=== PATIENT | female | born 1985 | race Caucasian/White ===

== ENCOUNTER 2022-04-13 16:06 | Emergency (ER) | payer OTHER ==
[~2022-04-13] VITALS: Ht 175.3 cm; Wt 108.9 kg
[~2022-04-13 16:06] MED LIST: ALTACE5 MG; LEVSIN/SL0.125 MG SL; NEXIUM10 MG; PRILOSEC20 MG PO; URIN D.S. TABL1 EACH
[2022-04-13] MEDS ORDERED: BUPROPION XL150 MG PO (16:18)
== END 2022-04-13 19:28 | disposition home or self-care (01) ==
LOC: ER 16:06
DX: J06.9 Acute upper respiratory infection, unspecified (principal); R51.9 Headache, unspecified; Z20.822 Contact with and (suspected) exposure to COVID-19